=== PATIENT | female | born 1955 | race Caucasian/White ===

== ENCOUNTER → 2016-12-22 | Outpatient (CLI) | payer OTHER ==
[~2016-12-22] MED LIST: ACTIVELLA1 TAB PO; ALEVE220 M1 PO; ALEVE220 MG PO; BC POWDER PACK1 EAC1 PO; ETODOLAC 300 M300 MG; IBUPROFEN 200200 M1 PO; MELOXICAM7.5 MG PO; METHOCARBAMOL750 MG PO; MOBIC15 MG PO; NABUMETONE 500500 M2 PO; NEURONTIN 300300 M1 PO; PRILOSEC20 MG PO; RANITIDINE HCL300 M1 PO; TRAMADOL 50 MG50 MG PO; [UNRECOGNIZED DRUG - OTHER]
== END ==
LOC: CAT 11:28
DX: Z13.6 Encounter for screening for cardiovascular disorders (principal)

== ENCOUNTER → 2019-10-14 | Outpatient (CLI) | payer OTHER | LOC: MRI 09:18 | PROVIDERS: ATTEND Family Medicine | DX: M43.16 Spondylolisthesis, lumbar region (principal); M47.816 Spondylosis without myelopathy or radiculopathy, lumbar region ==

== ENCOUNTER → 2019-11-10 | Outpatient (CLI) | payer OTHER ==
[~2019-11-10] VITALS: Ht 162.6 cm; Wt 81.6 kg
[~2019-11-10] MED LIST changes: +CELEBREX 200 M200 M1 PO; +LIPITOR 20 MG T20 M1 PO; +MELOXICAM15 MG PO
--- NOTE | ~2019-11-10 | HPC ---
[facility] [address] [place] [address] PAIN MANAGEMENT CONSULTATION Name: VIOLETTA HEATH Room #: REG HELLEN Gimenez#: [id number] Admission: 11/10/19 Attend Phys: Stefano Small MD Discharge: Date of : 53 Report #: [id number] THIS REPORT FOR: cc: Trell Bowen MD, Neal A. MD Morgan, Richard L. MD ~ CC: Corey Small DATE OF SERVICE: 11/10/2019 CHIEF COMPLAINT: Low back pain with bilateral lumbosacral radiculopathy, L5-S1. Acquired spondylolisthesis at L4-L5 with spinal stenosis narrowing 6 mm. The patient is a prior patient of our clinic, I last saw in 2014. At that time, she was experiencing intermittent back pain with both radicular and mechanical features. It should be noted in 2014 reviewing her x-ray, she did not have a spondylolisthesis. Over the course of the last 5 years, she has developed one now an 8 mm grade 1 anterolisthesis of L4 and L5. She has progressively developed symptoms of radiculopathy radiating into both legs. Almost all of her pain is down the posterior lateral aspect of the leg, right worse than left. Pain is worse with standing and walking. She gets some relief with sitting. Pain intensity is 8/10. She has not had formal physical therapy exercises bit with a bicycle, but there is no specific back or core exercises. She is on gabapentin at bedtime to aid with sleep and alternates ibuprofen and Celebrex along with the occasional use of tramadol. All medicines prescribed by Dr. Bowen. Dr. Bernstein did an original surgery for her lumbar laminectomy in 2009. She recovered well following the surgery, although she did have some persistent post-laminectomy pain, which we helped her with for a number of years. She has an appointment to see Dr. Guilherme Hays and discuss possible fusion if her pain is not improving. That appointment is this week. MEDICATIONS: Atorvastatin, Celebrex or meloxicam or tramadol. ALLERGIES: She has allergy to SULFA and has been nauseated with the nonsteroidal Naproxen sodium. REVIEW OF SYSTEMS: Positive for fatigue and weakness, chronic sinusitis, dyspnea on exertion with walking and nocturia. She complains of depression in [address] [address] PAIN MANAGEMENT CONSULTATION Name: VIOLETTA HEATH Room #: REG CLI [facility]#: [id number] Admission: 11/10/19 Attend Phys: Stefano Small MD Discharge: Date of : 53 Report #: [id number] the past. Orthopedic is positive for bilateral pain in the thumbs and she has seen Dr. Obregon with possible surgery contemplated for the future. She also has prolapsed uterus, which is interfering with her symptoms of urination and has seen Dr. Nahum Joshi with possible surgery in the future. PAST MEDICAL HISTORY: Negative for any medical conditions. PAST SURGICAL HISTORY: 2000, uterine myomectomy; June 2009, lumbar laminectomy at L5. SOCIAL HISTORY: She is . She was released from her job in 2017 and has not returned to work. She started Medicare this month and turned to 64 this week. She denies use of tobacco, alcohol or any illicit substances. Impact pain score is quite high and if all categories 46/70 with greatest interference coming for enjoyment of life, mood and general activity. She has completed an opioid risk tool and score is low for addiction. PHYSICAL EXAMINATION: GENERAL: Pleasant female. VITAL SIGNS: Blood pressure 108/72, heart rate 83, respirations 16, O2 sat 97 on room air. She is wearing a mask because of COVID restrictions. She moves independently from sitting to standing position, ambulates without an antalgic gait. CHEST: Clear to auscultation. CARDIAC: Rhythm is regular. I could not hear a murmur. She is mildly obese with a BMI of 30.9. MUSCULOSKELETAL: Examination of the spine reveals good range of motion. She has a small scar over the lumbosacral segment. She is able to flex, extend and rotate without exacerbating her radicular symptoms. She has some negative straight leg raising in both the sitting and supine position. Sensation is normal to light touch. Strength is normal throughout the lower extremities and symmetrical. MRI is reviewed. I looked at the report and also the films, which demonstrate the spondylolisthesis at L4-L5, grade 1 about 8 mm. Spinal stenosis also a bit more to the right than the left with narrowing of the lateral recess there. This is consistent with symptoms. IMPRESSION: L4-L5 spondylolisthesis with bilateral radicular symptoms. RECOMMENDATIONS: We discussed pain management strategies including exercise, core strengthening and weight loss. Discussed medications briefly. She will continue her current medicines without any discussion at all about extending her use of stronger pain medicines. She may benefit from an epidural injection for temporary relief. This is not a fix her care. She has an appointment with Dr. Guilherme Hays to discuss possible decompression and fusion. [address] [address] PAIN MANAGEMENT CONSULTATION Name: VIOLETTA HEATH Room #: REG CLI Jon#: [id number] Admission: 11/10/19 Attend Phys: Stefano Small MD Discharge: Date of : 53 Report #: [id number] After informed consent, she would like to go forward with an epidural injection. PROCEDURE: After informed consent, she was taken to fluoroscopic suite, placed prone, skin prepped with ChloraPrep. Skin anesthetized first over the L4-L5 interspace. A 20-gauge Tuohy epidural needle was advanced in the epidural space using loss of resistance technique. Even a small amount of local anesthetic caused discomfort in the epidural space felt tight at that location, so I removed the needle and reposition the needle at the L3-L4. Good loss of resistance obtained. A 0.25 mL of Omnipaque was injected with excellent epidurogram extending bilaterally. It was then followed by 3 mL of 0.5% lidocaine mixed with 80 mg triamcinolone. She tolerated the procedure well and there were no complications. She was taken to recovery room for observation and will be seen in followup as needed for further epidural injections, perhaps in a month or two. If she decides to wait on surgery, epidurals can be used periodically as long as we do not over utilize them to provide symptomatic relief. At the final note, we did also discuss the fact that she had had pubic rami fractures in the past. She has had a bone density within the last year and half and her bone density is good, in fact for age she was listed as normal. I feel intermittent epidural injections are reasonable and safe as long as we do not exceed guidelines or perform infrequently. By: [id number] Stefano Small MD /eber
[2019-11-10 08:44] VITALS: BP 108/74
--- NOTE | 2019-11-10 08:52 | NUR ---
Pain Clinic Assessment: 1. History of Osteoarthritis: SPINAL History of Rheumatoid Arthritis: Not Applicable 2. Height: 5 ft. 4 in. 162.6 cm. Weight: 180.0 lb. oz. 81.648 kg. Patient's BMI: 11.7 3. Vital Signs: BP: 108/74 Pulse: 83 Resp: 16 Temp: 02 Sat: 97 ECG Mon: 4. Pain Intensity: 8 5. Fall Risk: Dizziness: N Needs help standing or walking: N Fallen in the last 3 months: N Fall risk comments: 6. Patient on Blood Thinner: None 7. History of Hypertension: N 8. Opioid Therapy greater than 6 weeks: N Opiate Contract Signed: 9. Risk Assessment Tool Provided: LOW 10. Functional Assessment Tool: 11. Recreational Drug Use: Never Drug Type: Tobacco Use: Never Smoker Tobacco Type: Amount or Packs/day: How Many Years: Alcohol Use: No Frequency: Quant:
== END | disposition home or self-care (01) ==
LOC: PAIN 06:56
PROVIDERS: ATTEND Anesthesiology Pain Medicine
DX: M54.17 Radiculopathy, lumbosacral region (principal); M48.061 Spinal stenosis, lumbar region without neurogenic claudication; M43.16 Spondylolisthesis, lumbar region; G89.29 Other chronic pain; Z98.890 Other specified postprocedural states; Z79.899 Other long term (current) drug therapy

== ENCOUNTER → 2020-02-18 | Outpatient (CLI) | payer OTHER ==
[~2020-02-18] MED LIST changes: +CALCIUM500 MG PO
== END ==
LOC: LAB 11:15
DX: Z01.812 Encounter for preprocedural laboratory examination (principal); Z20.828 Contact with and (suspected) exposure to other viral communicable diseases